=== PATIENT | female | born 1940 | race Caucasian/White ===

== ENCOUNTER 2016-12-31 17:54 | Emergency (ER) | payer MEDICARE, MEDICAID ==
[2016-12-31 18:39] VITALS: BP 121/80
--- NOTE | 2016-12-31 18:51 | EDM.PDOC ---
ED HISTORY OF PRESENT ILLNESS - General Chief Complaint: Respiratory Problem Stated Complaint: SOB FEET Time Seen by Provider: 12/31/16 18:37 Source: Reports: Patient, Family, RN notes reviewed History Limitations: Reports: No limitations - History of Present Illness INITIAL COMMENTS - FREE TEXT/NARRATIVE: 76-year-old female presents emergency department with a complaint of shortness of breath she has a known history of chronic obstructive pulmonary disease usually wears oxygen whenever she exerts herself for this particular event she was on an outing today and ran out of oxygen. She did come in with complaints of shortness of breath however after settling down and her O2 sats rate is 92% states the sensation of shortness of breath now has resolved on room air however she will still need oxygen if she exerts herself. She has another concern in that she has not had her toenails clipped for several years and would like then clipped today - Related Data Allergies/ADRs: Allergies Allergy/AdvReac Type Severity Reaction Status Date / Time No Known Allergies Allergy Verified 12/31/16 18:18 Past Medical History Respiratory History: Reports: Asthma, COPD Social & Family History - Tobacco Use Smoking Status *Q: Current Every Day Smoker Years of Tobacco use: 50 Packs/Tins Daily: 0.5 ED ROS GENERAL - Review of Systems Review Of Systems: See Below Constitutional: Reports: no symptoms HEENT: Reports: No symptoms Respiratory: Reports: Shortness of Breath Cardiovascular: Reports: Dyspnea on exertion GI/Abdominal: Reports: No symptoms : Reports: no symptoms Musculoskeletal: Reports: no symptoms Skin: Reports: no symptoms Neurological: Reports: No Symptoms Psychiatric: Reports: No symptoms ED EXAM, GENERAL - Physical Exam Exam: See Below Free Text/Narrative:: General: Female, not in any distress, alert and oriented x3 HEENT: head is atraumatic normocephalic, eyes pupils equal round reactive to light and accommodation sclera clear no conjunctivitis appreciated. Ears blocked by cerumen bilaterally. Nose no septal deviation, nares are clear, no blood present. Mouth mucosa is moist and pink no erythema or exudate noted in soft palate, tongue is midline uvula is midline, dentures in place. Neck: Supple no thyromegaly no tracheal deviation. Nodes: Cervical nodes subclavicular nodes nontender no palpable lymphadenopathy noted. Lungs: Distant breath sounds appreciate any adventitious noises CV: Regular rate and rhythm S1 and S2 appreciated no murmurs rubs or gallops noted. Abdomen: Soft, nontender, no palpable masses or organomegaly appreciated, no distention no guarding bowel sounds are present, . Neuro: Cranial nerves II through XII grossly intact Skin: Warm and dry, intact Extremities: No lower extremity edema appreciated, pedal pulse is +2. Markedly lengthened toenails consistent with "dragons claw" Course - Vital Signs Last Recorded V/S: Last Vital Signs Temp 97.3 F 12/31/16 18:30 Pulse 107 H 12/31/16 18:38 Resp 16 12/31/16 18:38 BP 121/80 12/31/16 18:38 Pulse Ox 95 12/31/16 18:38 Departure - Departure Time of Disposition: 19:02 Disposition: Home, Self-Care 01 Condition: fair Clinical Impression: Chronic obstructive pulmonary disease Qualifiers: COPD type: COPD with acute exacerbation Qualified Code(s): J44.1 - Chronic obstructive pulmonary disease with (acute) exacerbation Forms: ED Department Discharge Additional Instructions: Please followup with your primary care as needed and resume your normal oxygen dosage at home - Assessment/Plan Plan: Assessment Acuity = acute Site and laterality = hypoxic events complicating the patient's known history of chronic obstructive pulmonary disease Etiology = secondary to running out of oxygen and her oxygen tank Manifestations = none Location of injury = home Lab values = none Plan Because we do not have an exchange program and she is in normal range on room air we elected to minimize any exertion she will ride 45 minutes in the car back to her home where she has additional oxygen supply, recommend followup with primary care as needed Patient was in agreement with the plan all questions were answered, they were instructed to return to the emergency department or call for worsening symptoms. This note was dictated using [employer] voice recognition software please call with any questions.
== END 2016-12-31 19:14 | disposition home or self-care (01) ==
LOC: JP.ED 17:54
DX: J44.1 Chronic obstructive pulmonary disease with (acute) exacerbation (principal); F17.210 Nicotine dependence, cigarettes, uncomplicated
CPT/HCPCS: 99284; 99285